=== PATIENT | male | born 1975 ===

== ENCOUNTER 2017-03-31 18:42 | Emergency (ER) | payer MEDICAID, OTHER ==
[2017-03-31 19:12] VITALS: TEMP 98.1
--- NOTE | 2017-03-31 19:18 | ED PDOC ---
Arrival/HPI - General Chief Complaint: Chest Pain Time Seen by Provider: 03/31/17 18:44 Historian: Patient - History of Present Illness Narrative History of Present Illness (Text): 03/31/17 19:20 A 41 year old male, who denies any past medical history, presents to the emergency department complaining of intermittent left sided chest pain for the past 1-2 weeks. Patient describes pain as a constant pressure, sometimes a sharp pain. Pain not worse with movement or exertion. Patient reports he gets a sharp pain with deep breaths. Takes Advil for pain. Patient notes chronic LUQ abdominal pain, but denies any cough, shortness of breath, nausea, vomiting or any other complaints at this time. Denies any drug use. Patient admits to being stressed. Time/Duration: Other (1-2 weeks) Symptom Onset: Sudden Symptom Course: Unchanged Activities at Onset: Rest Context: Home Past Medical History - Provider Review Nursing Documentation Reviewed: Yes - Infectious Disease Hx of Infectious Diseases: None - Psychiatric Hx Substance Use: No - Surgical History Hx Appendectomy: Yes Family/Social History - Physician Review Nursing Documentation Reviewed: Yes Family/Social History: No Known Family HX Smoking Status: Never Smoked Hx Alcohol Use: Yes Frequency of alcohol use: Socially Hx Substance Use: No Allergies/Home Meds Allergies/Adverse Reactions: Allergies No Known Allergies Allergy (Verified 03/31/17 18:52) Review of Systems - Physician Review All systems were reviewed & negative as marked: Yes - Review of Systems Respiratory: absent: SOB, Cough Cardiovascular: Chest Pain (L sided) Gastrointestinal: Abdominal Pain (chronic LUQ). absent: Nausea, Vomiting Physical Exam Vital Signs Reviewed: Yes Vital Signs Temp Pulse Resp BP Pulse Ox 03/31/17 19:04 98.1 F 03/31/17 18:56 89 16 130/72 97 Blood Pressure: Normal Pulse: Regular Respiratory Rate: Normal Appearance: Positive for: Well-Appearing, Non-Toxic, Comfortable Pain Distress: None Mental Status: Positive for: Alert and Oriented X 3 - Systems Exam Head: Present: Atraumatic, Normocephalic Extroacular Muscles: Present: EOMI Conjunctiva: Present: Normal Mouth: Present: Moist Mucous Membranes Pharnyx: Present: Normal. No: ERYTHEMA, EXUDATE Neck: Present: Normal Range of Motion Respiratory/Chest: Present: Clear to Auscultation, Good Air Exchange. No: Respiratory Distress, Accessory Muscle Use Cardiovascular: Present: Regular Rate and Rhythm, Normal S1, S2. No: Murmurs Abdomen: Present: Normal Bowel Sounds. No: Tenderness, Distention, Peritoneal Signs Back: Present: Normal Inspection Upper Extremity: Present: Normal Inspection. No: Cyanosis, Edema Lower Extremity: Present: Normal Inspection. No: Edema Neurological: Present: GCS=15, CN II-XII Intact, Speech Normal Skin: Present: Warm, Dry, Normal Color. No: Rashes Psychiatric: Present: Alert, Oriented x 3, Normal Insight, Normal Concentration Medical Decision Making ED Course and Treatment: 03/31/17 19:13 Impression: A 41 year old male with left sided chest pain. Differential Diagnosis included but are not limited to: anxiety vs. musculoskeletal vs. pneumonia vs. pulmonary embolism vs. acute coronary syndrome Plan: -- chest xray -- labs -- Urinalysis -- Xanax -- Reassess and disposition Prior Visits: Notes and results from previous visits were reviewed. Patient was last seen in the Emergency department on 07/15/16 for evaluation of worsening left testicular pain. Progress Notes: EKG: NSR @ 92; no ST/T changes; normal intervals, normal axis CXR: nad as read by me. 03/31/17 20:36 Patient with noted history of intermittent but increasing chest pressure, not associated with exertion with no sob x 2 weeks. CXR and EKG are normal as are labs, including CE and negative d-dimer. Patient is a 41 y.o male but no other cardiac risk factors. He admits to being stressed and was given a low dose of xanax and reports feeling much better with it. Findings reveal no current evidence of a cardiopulmonary etiology and he will need to follow up outpatient in the medical clinic for re-evaluation. Will give script for 4 xanax tablets for anxiety to use PRN and instructed to follow up in the medical clinic. - Lab Interpretations Lab Results: 03/31/17 19:25 03/31/17 19:25 Lab Results 03/31/17 19:30: Urine Color Yellow, Urine Appearance Clear, Urine pH 7.5, Ur Specific [place] 1.020, Urine Protein Negative, Urine Glucose (UA) Negative, Urine Ketones Negative, Urine Blood Negative, Urine Nitrate Negative, Urine Bilirubin Negative, Urine Urobilinogen 1.0 H, Ur Leukocyte Esterase Negative 03/31/17 19:25: Sodium 138, Potassium 4.4, Chloride 103, Carbon Dioxide 28, Anion Gap 11, BUN 13, Creatinine 1.2, Est GFR ( Amer) > 60, Est GFR (Non- Af Amer) > 60, Random Glucose 80, Calcium 9.1, Magnesium 1.9, Total Bilirubin 0.3, AST 29, ALT 46, Alkaline Phosphatase 60, Lactate Dehydrogenase 319 L, Total Creatine Kinase 73, Troponin I < 0.01, NT-Pro-B Natriuret Pep < 11.1, Total Protein 7.1, Albumin 4.1, Globulin 2.9, Albumin/Globulin Ratio 1.4 03/31/17 19:25: PT 10.5, INR 0.97, APTT 24.6, D-Dimer, Quantitative 0.19 03/31/17 19:25: WBC 7.3, RBC 4.94, Hgb 15.2, Hct 43.7, MCV 88.5, MCH 30.8, MCHC 34.8, RDW 12.2, Plt Count 216, MPV 11.3 H, Gran % 56.5, Lymph % (Auto) 34.0, Bowman % (Auto) 7.8 H, Eos % (Auto) 1.4 L, Baso % (Auto) 0.3, Gran # 4.13, Lymph # 2.5, Bowman # 0.6, Eos # 0.1, Baso # 0.02 I have reviewed the lab results: Yes - RAD Interpretation Radiology Orders: 03/31/17 19:04 CHEST PORTABLE [RAD] Stat - Medication Orders Current Medication Orders: Discontinued Medications Alprazolam (Xanax) 0.125 mg PO STAT STA PRN Reason: Protocol Stop: 03/31/17 19:06 Last Admin: 03/31/17 19:35 Dose: 0.125 mg - Scribe Statement The provider has reviewed the documentation as recorded by the Mau Henry Provider Scribe Attestation: All medical record entries made by the Scribe were at my direction and personally dictated by me. I have reviewed the chart and agree that the record accurately reflects my personal performance of the history, physical exam, medical decision making, and the department course for this patient. I have also personally directed, reviewed, and agree with the discharge instructions and disposition. Disposition/Present on Arrival - Present on Arrival Any Indicators Present on Arrival: No History of DVT/PE: No History of Uncontrolled Diabetes: No Urinary Catheter: No History of Decub. Ulcer: No History Surgical Site Infection Following: None - Disposition Have Diagnosis and Disposition been Completed?: Yes Diagnosis: Atypical chest pain Disposition: HOME/ ROUTINE Disposition Time: 20:35 Patient Plan: Discharge Condition: GOOD Discharge Instructions (ExitCare): Chest Pain (ED), Anxiety (ED) Print Language: BURMESE Additional Instructions: Decrease stress. You may use the xanax as instructed and make sure you follow up in the medical clinic. Return to the emergency department if any new concerning symptoms. Prescriptions: ALPRAZolam [Xanax] 1 tab PO Q8H PRN #4 tab PRN Reason: Anxiety Ref[place]: [facility] [place] [facility] [place] - Follow up with primary
[2017-03-31 19:34] LABS: ADD MANUAL DIFF? NO
[2017-03-31 19:42] LABS: BASO # 0.02 K/mm3 (0.0-2.0); BASO % 0.3 % (0.0-3.0); EOS # 0.1 (0.0-0.7); EOS % 1.4 % (1.5-5.0); GRAN # 4.13 (1.4-6.5); GRAN % 56.5 % (50.0-68.0); HEMATOCRIT 43.7 % (42.0-52.0); LYMPH # 2.5 (1.2-3.4); MEAN CELL VOLUME 88.5 fL (80.0-105.0); MEAN CORPUSCULAR HEMOGLOBIN 30.8 pg (25.0-35.0); MEAN CORPUSCULAR HGB CONC 34.8 g/dl (31.0-37.0); MEAN PLATELET VOLUME 11.3 fl (7.0-11.0); MONO # 0.6 (0.1-0.6); MONO % 7.8 % (1.0-6.0); PLATELET COUNT 216 10^3/uL (120.0-450.0); RED CELL DISTRIBUTION WIDTH 12.2 % (11.5-14.5); WHITE BLOOD COUNT 7.3 10^3/ul (4.5-11.0)
[2017-03-31 19:51] LABS: PH,URINE 7.5 (4.7-8.0); URINE BILIRUBIN NEGATIVE (NEGATIVE); URINE BLOOD NEGATIVE (NEGATIVE); URINE GLUCOSE (UA) NEGATIVE (NEGATIVE); URINE KETONE NEGATIVE (NEGATIVE); URINE LEUKOCYTE ESTERASE NEGATIVE Leu/uL (NEGATIVE); URINE PROTEIN NEGATIVE mg/dL (<30 mg/dL)
[2017-03-31 19:51] LABS: ALB/GLOB RATIO 1.4 (1.1-1.8); ALKALINE PHOSPHATASE 60 U/L (38-133); ALT/SGPT 46 U/L (7-56); AST/SGOT 29 U/L (15-59); BILIRUBIN,TOTAL 0.3 mg/dL (0.2-1.3); BLOOD UREA NITROGEN 13 mg/dL (7-21); CALCIUM 9.1 mg/dL (8.4-10.5); CARBON DIOXIDE 28 mmol/L (21-33); CHLORIDE 103 mmol/L (98-107); GFR AFRICAN-AMERICAN > 60; GLUCOSE,RANDOM 80 mg/dL (70-110); MAGNESIUM 1.9 mg/dL (1.7-2.2); POTASSIUM 4.4 mmol/L (3.6-5.0); SODIUM 138 mmol/L (132-148); TOTAL PROTEIN 7.1 g/dL (5.8-8.3)
[2017-03-31 19:52] LABS: INR 0.97 (0.93-1.08); PARTIAL THROMBOPLASTIN TIME 24.6 Seconds (23.7-30.8)
[2017-03-31 19:54] LABS: D DIMER 0.19 mg/L FEU (0-0.50)
[2017-03-31 19:54] LABS: URINE APPEARANCE CLEAR (CLEAR); URINE COLOR YELLOW (YELLOW)
[2017-03-31 20:04] LABS: TROPONIN I < 0.01 ng/mL
[2017-03-31 21:02] VITALS: BP 118/62; PULSE 88; RESP 17; O2SAT 98
--- NOTE | 2017-04-01 10:16 | RAD ---
HISTORY: Left-sided chest pain COMPARISON: No prior. FINDINGS: LUNGS: The lungs are clear. PLEURA: No significant pleural effusion identified, no pneumothorax apparent. CARDIOVASCULAR: Normal. OSSEOUS STRUCTURES: No significant abnormalities. VISUALIZED UPPER ABDOMEN: Normal. OTHER FINDINGS: None. IMPRESSION: No acute findings.
--- NOTE | 2017-04-01 23:58 | CARD ---
APPROVED REPORT EKG Measurement Heart [id number] <Conclusion> Normal sinus rhythm Normal ECG
== END 2017-03-31 21:01 | disposition home or self-care (01) ==
LOC: ED 18:42
DX: R07.89 Other chest pain (principal)

== ENCOUNTER 2017-06-12 13:26 | Emergency (ER) | payer MEDICAID, OTHER ==
[2017-06-12 15:03] LABS: URINE APPEARANCE CLEAR (CLEAR); URINE BILIRUBIN NEGATIVE (NEGATIVE); URINE BLOOD NEGATIVE (NEGATIVE); URINE COLOR YELLOW (YELLOW); URINE GLUCOSE (UA) 100 mg/dL (NEGATIVE); URINE KETONE NEGATIVE (NEGATIVE); URINE LEUKOCYTE ESTERASE NEGATIVE Leu/uL (NEGATIVE); URINE PROTEIN NEGATIVE mg/dL (<30 mg/dL); URINE UROBILINOGEN 0.2 E.U./dL (<1 E.U./dL)
--- NOTE | 2017-06-12 15:16 | RAD ---
HISTORY: pes eval COMPARISON: Chest x-ray performed 03/31/17 TECHNIQUE: Chest, one view. FINDINGS: Examination limited by habitus and hypoinflation. LUNGS: No focal consolidation. Please note that chest x-ray has limited sensitivity for the detection of pulmonary masses. PLEURA: No significant pleural effusion identified. No definite pneumothorax . CARDIOVASCULAR: Heart size appears within normal limits. OSSEOUS STRUCTURES: No acute osseous abnormality identified. VISUALIZED UPPER ABDOMEN: Unremarkable. OTHER FINDINGS: None. IMPRESSION: No focal consolidation, significant pleural effusion, or definite pneumothorax identified.
[2017-06-12 15:31] LABS: BASO # 0.02 K/mm3 (0.0-2.0); BASO % 0.3 % (0.0-3.0); EOS # 0.1 (0.0-0.7); EOS % 1.6 % (1.5-5.0); GRAN # 4.22 (1.4-6.5); HEMATOCRIT 47.6 % (42.0-52.0); LYMPH # 2.7 (1.2-3.4); LYMPH % 35.7 % (22.0-35.0); MEAN CELL VOLUME 89.6 fl (80.0-105.0); MEAN CORPUSCULAR HEMOGLOBIN 30.7 pg (25.0-35.0); MEAN CORPUSCULAR HGB CONC 34.2 g/dl (31.0-37.0); MEAN PLATELET VOLUME 11.3 fl (7.0-11.0); MONO # 0.5 (0.1-0.6); MONO % 6.4 % (1.0-6.0); RED CELL DISTRIBUTION WIDTH 12.7 % (11.5-14.5); WHITE BLOOD COUNT 7.5 10^3/ul (4.5-11.0)
[2017-06-12 15:42] LABS: ALB/GLOB RATIO 1.6 (1.1-1.8); ALKALINE PHOSPHATASE 65 U/L (38-126); ALT/SGPT 49 U/L (7-56); AST/SGOT 28 U/L (17-59); BILIRUBIN,TOTAL 0.5 mg/dL (0.2-1.3); BLOOD UREA NITROGEN 17 mg/dL (7-21); CALCIUM 10.1 mg/dL (8.4-10.5); CARBON DIOXIDE 29 mmol/L (21-33); CHLORIDE 102 mmol/L (98-107); GFR AFRICAN-AMERICAN > 60; GLUCOSE,RANDOM 75 mg/dL (70-110); POTASSIUM 4.6 mmol/L (3.6-5.0); SODIUM 141 mmol/L (132-148); TOTAL PROTEIN 7.3 g/dL (5.8-8.3)
--- NOTE | 2017-06-12 17:37 | ED PDOC ---
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 pt states he sustained abrasion to left forehead from scratching so much from anxiety. pt states anxiety and depression has worsened since the break up with his girlfriend. pt denies SI or HI. denies cp or sob. no fever/chills. no abdominal pain. no other complaints. Past Medical History - Provider Review Nursing Documentation Reviewed: Yes - Travel History Have you recently traveled outside [place] w/in the past 3 mons?: No - Infectious Disease Hx of Infectious Diseases: None - Tetanus Immunization Tetanus Immunization: Unknown - Psychiatric Hx Anxiety: Yes Hx Substance Use: No - Surgical History Hx Appendectomy: Yes - Anesthesia Hx Anesthesia: Yes Hx Anesthesia Reactions: No Hx Malignant Hyperthermia: No Family/Social History - Physician Review Nursing Documentation Reviewed: Yes Family/Social History: Unknown Family HX Smoking Status: Never Smoked Hx Alcohol Use: Yes Hx Substance Use: No Allergies/Home Meds Allergies/Adverse Reactions: Allergies No Known Allergies Allergy (Verified 06/12/17 13:51) Review of Systems - Review of Systems Constitutional: absent: Fatigue, Fevers Respiratory: absent: SOB, Cough Cardiovascular: absent: Chest Pain, Palpitations Gastrointestinal: absent: Abdominal Pain, Diarrhea, Nausea, Vomiting Genitourinary Male: absent: Dysuria, Frequency Musculoskeletal: absent: Arthralgias, Back Pain, Neck Pain Skin: Rash. absent: Pruritis Neurological: absent: Headache, Dizziness Psychiatric: Anxiety, Depression. absent: Suicidal Ideation Physical Exam Vital Signs Reviewed: Yes Vital Signs Temp Pulse Resp BP Pulse Ox 06/12/17 17:58 98.1 F 85 19 123/71 97 06/12/17 17:00 72 18 109/53 L 99 06/12/17 15:29 98.0 F 76 17 134/70 98 06/12/17 13:46 98.4 F 75 19 123/91 H 99 Temperature: Afebrile Blood Pressure: Normal Pulse: Regular Respiratory Rate: Normal Appearance: Positive for: Well-Appearing, Non-Toxic, Comfortable Pain Distress: None Mental Status: Positive for: Alert and Oriented X 3 - Systems Exam Head: Present: Atraumatic, Other (abrasion noted to left forehead; no erythema; no edema, no tenderness. no step offs or crepitus. ) Mouth: Present: Moist Mucous Membranes Neck: Present: Normal Range of Motion Respiratory/Chest: Present: Clear to Auscultation, Good Air Exchange. No: Respiratory Distress, Accessory Muscle Use Cardiovascular: Present: Regular Rate and Rhythm, Normal S1, S2. No: Murmurs Abdomen: Present: Normal Bowel Sounds. No: Tenderness, Distention, Peritoneal Signs Upper Extremity: Present: Normal ROM Neurological: Present: GCS=15, Gait Normal Skin: Present: Warm, Dry, Normal Color. No: Rashes Psychiatric: Present: Alert, Oriented x 3 Medical Decision Making ED Course and Treatment: 06/12/17 17:20 Patient is nontoxic well-appearing in no distress vital signs are stable. CBC WNL CMP WNL Tylenol WNL Salicylate WNL Alcohol level WNL Urine drug screen wnl UA; wnl cxr: wnl ekg NSR at 64b/m no st elevations, normal axis, normal intervals. pt is medically cleared for PES evaluation Patient was seen and evaluated by PES screener: akosua pt given 0.25mg xanax in er. Patient cleared psychiatrically for discharge pt was advised to f/u with mental health center. advised immediate return if symptoms worsen,persist or if new symptoms develop. all information was translated to the patient using central office maintainer fruit loader machine operator #[phone] Impression; anxiety, depression Followup with behavioral health return if symptoms worsen,persist or if new symptoms develop. xanax 1 tablet every 8 hours as needed for anxiety; may cause drowsiness. - Lab Interpretations Lab Results: 06/12/17 13:10 06/12/17 13:10 Lab Results 06/12/17 14:50: Urine Opiates Screen Negative, Urine Methadone Screen Negative, Ur Barbiturates Screen Negative, Ur Phencyclidine Scrn Negative, Ur Amphetamines Screen Negative, U Benzodiazepines Scrn Negative, U Oth Cocaine Metabols Negative, U Cannabinoids Screen Negative 06/12/17 14:50: Urine Color Yellow, Urine Appearance Clear, Urine pH 6.0, Ur Specific [place] 1.025, Urine Protein Negative, Urine Glucose (UA) 100 H, Urine Ketones Negative, Urine Blood Negative, Urine Nitrate Negative, Urine Bilirubin Negative, Urine Urobilinogen 0.2, Ur Leukocyte Esterase Negative 06/12/17 13:10: Salicylates < 1 L, Acetaminophen < 10.0 L 06/12/17 13:10: WBC 7.5, RBC 5.31, Hgb 16.3, Hct 47.6, MCV 89.6, MCH 30.7, MCHC 34.2, RDW 12.7, Plt Count 229, MPV 11.3 H, Gran % 56.0, Lymph % (Auto) 35.7 H, [place] % (Auto) 6.4 H, Eos % (Auto) 1.6, Baso % (Auto) 0.3, Gran # 4.22, Lymph # 2.7, [place] # 0.5, Eos # 0.1, Baso # 0.02 06/12/17 13:10: Alcohol, Quantitative < 10 06/12/17 13:10: Sodium 141, Potassium 4.6, Chloride 102, Carbon Dioxide 29, Anion Gap 15, BUN 17, Creatinine 0.9, Est GFR ( Amer) > 60, Est GFR (Non- Af Amer) > 60, Random Glucose 75, Calcium 10.1, Total Bilirubin 0.5, AST 28, ALT 49, Alkaline Phosphatase 65, Total Protein 7.3, Albumin 4.5, Globulin 2.8, Albumin/Globulin Ratio 1.6 - RAD Interpretation Radiology Orders: 06/12/17 14:39 CHEST PORTABLE [RAD] Stat - Medication Orders Current Medication Orders: Alprazolam (Xanax) 0.25 mg PO STAT STA PRN Reason: Protocol Stop: 06/12/17 18:28 Disposition/Present on Arrival - Present on Arrival Any Indicators Present on Arrival: No History of DVT/PE: No History of Uncontrolled Diabetes: No Urinary Catheter: No History of Decub. Ulcer: No History Surgical Site Infection Following: None - Disposition Have Diagnosis and Disposition been Completed?: Yes Diagnosis: Depression, Anxiety Disposition: HOME/ ROUTINE Disposition Time: 17:44 Patient Plan: Discharge Condition: GOOD Additional Instructions: Followup with behavioral health return if symptoms worsen,persist or if new symptoms develop. Prescriptions: ALPRAZolam [Xanax] 1 tab PO Q8H PRN #4 tab PRN Reason: Anxiety Referrals: [facility] [place] - Follow up with primary [facility] [Outside] - Follow up with primary Forms: [employer] (Persian), WORK NOTE
[2017-06-12 18:00] VITALS: BP 123/71; PULSE 85; RESP 19; TEMP 98.1; O2SAT 97
--- NOTE | 2017-06-14 07:25 | CARD ---
APPROVED REPORT EKG Measurement Heart [id number] [id number] <Conclusion> Normal sinus rhythm Normal ECG
== END 2017-06-12 18:41 | disposition home or self-care (01) ==
LOC: ED 13:26
DX: F32.9 Major depressive disorder, single episode, unspecified (principal); F41.9 Anxiety disorder, unspecified
CPT/HCPCS: 71010; 80053; 81003; 85025; 93005; 99284; G0480

== ENCOUNTER 2018-12-09 22:12 | Emergency (ER) | payer SELFPAY ==
[2018-12-09 22:44] VITALS: BMI 35.5
--- NOTE | 2018-12-09 22:58 | ED PDOC ---
Arrival/HPI <Abad Dawson - Last Filed: 12/10/18 00:21> - History of Present Illness Narrative History of Present Illness (Text): Dilip Shell is a 43 year old male who presents to the Emergency department complaining of throat discomfort and difficulty swallowing for 4 years. Patient states he was seen in the past by a physician in the [facility], who did a basic exam and was treated with medication but never got better. Patient states symptoms are worse at night, especially when he was trying to sleep x 1 month. Patient states it feels like he's choking and can not breathe. Patient denies any fever, chills, URI symptoms, headache, rash, CP, back pain, SOB, or any other complaints. Symptom Onset: Gradual Symptom Course: Unchanged Activities at Onset: Light Context: Home <Unique Russell PA-C - Last Filed: 12/10/18 01:35> - General Chief Complaint: ENT Problem Time Seen by Provider: 12/09/18 22:27 Past Medical History - Provider Review Nursing Documentation Reviewed: Yes - Infectious Disease Hx of Infectious Diseases: None - Tetanus Immunization Tetanus Immunization: Unknown - Cardiac Hx Cardiac Disorders: No - Pulmonary Hx Respiratory Disorders: No - Neurological Hx Neurological Disorder: No - HEENT Hx HEENT Disorder: No - Renal Hx Renal Disorder: No - Endocrine/Metabolic Hx Endocrine Disorders: No - Hematological/Oncological Hx Blood Disorders: No - Integumentary Hx Dermatological Disorder: No - Musculoskeletal/Rheumatological Hx Musculoskeletal Disorders: No - Gastrointestinal Hx Gastrointestinal Disorders: No - Genitourinary/Gynecological Hx Genitourinary Disorders: No - Psychiatric Hx Psychophysiologic Disorder: Yes Hx Anxiety: Yes Hx Substance Use: No - Surgical History Hx Appendectomy: Yes Hx Tonsillectomy: Yes Other/Comment: Varicose vein removal - Anesthesia Hx Anesthesia: Yes Hx Anesthesia Reactions: No Hx Malignant Hyperthermia: No <Unique Russell PA-C - Last Filed: 12/10/18 01:35> Family/Social History - Physician Review Nursing Documentation Reviewed: Yes Family/Social History: Unknown Family HX Smoking Status: Never Smoked Hx Alcohol Use: Yes Frequency of alcohol use: Socially Hx Substance Use: No <Unique Russell PA-C - Last Filed: 12/10/18 01:35> Allergies/Home Meds <Samir,Abad - Last Filed: 12/10/18 00:21> <Unique Russell PA-C - Last Filed: 12/10/18 01:35> Allergies/Adverse Reactions: Allergies No Known Allergies Allergy (Verified 06/12/17 13:51) Review of Systems - Physician Review All systems were reviewed & negative as marked: Yes - Review of Systems Constitutional: Normal. absent: Fevers Eyes: Normal ENT: Sore Throat Respiratory: Normal. absent: SOB, Cough Cardiovascular: Normal. absent: Chest Pain Gastrointestinal: Normal. absent: Abdominal Pain, Diarrhea, Nausea, Vomiting Genitourinary Male: Normal. absent: Dysuria, Frequency, Hematuria, Urinary Output Changes Musculoskeletal: Normal. absent: Back Pain, Neck Pain Skin: Normal. absent: Rash Neurological: Normal. absent: Headache, Dizziness Endocrine: Normal Hemo/Lymphatic: Normal Psychiatric: Normal <Unique Russell PA-C - Last Filed: 12/10/18 01:35> Physical Exam Vital Signs Reviewed: Yes Temperature: Afebrile Blood Pressure: Normal Pulse: Regular Respiratory Rate: Normal Appearance: Positive for: Well-Appearing, Non-Toxic, Comfortable, Other (Speaking full sentences, no drooling) Pain Distress: None Mental Status: Positive for: Alert and Oriented X 3 - Systems Exam Head: Present: Atraumatic, Normocephalic Pupils: Present: PERRL Extroacular Muscles: Present: EOMI Conjunctiva: Present: Normal Ears: Present: Normal, NORMAL TM, Normal Canal. No: Erythema, TM Bulging, Fluid, TM Perf Mouth: Present: Moist Mucous Membranes. No: Drooling Pharnyx: Present: Normal. No: ERYTHEMA, EXUDATE, TONSILS ENLARGED, Peritonsilar Swelling, Uvular Deviation, Muffled/Hoarse Voice, Soft Palate/Uvular Edema Nose (External): Present: Atraumatic Nose (Internal): Present: Normal Inspection Neck: Present: Normal Range of Motion. No: Meningeal Signs, MIDLINE TENDERNESS, Paraspinal Tenderness, Lymphadenopathy Respiratory/Chest: Present: Clear to Auscultation, Good Air Exchange. No: Respiratory Distress, Accessory Muscle Use Cardiovascular: Present: Regular Rate and Rhythm, Normal S1, S2. No: Murmurs Upper Extremity: Present: Normal Inspection. No: Cyanosis, Edema Lower Extremity: Present: Normal Inspection. No: Edema Neurological: Present: GCS=15, CN II-XII Intact, Speech Normal Skin: Present: Warm, Dry, Normal Color. No: Rashes Psychiatric: Present: Alert, Oriented x 3, Normal Insight, Normal Concentration <Unique Russell PA-C - Last Filed: 12/10/18 01:35> Medical Decision Making ED Course and Treatment: Impression: 43 year old male complaining of throat discomfort and difficulty swallowing for 4 years. Plan: -- CT Neck Soft Tissue -- Labs -- Reassess and disposition Progress Notes: Patient is refusing labs and CT of the neck. Patient asked to reconsider, however still is refusing. States that he would rather go back to [place] and have a medical evaluation there. The patient is choosing to leave against medical advice. I have personally explained to the patient that choosing to do so may result in permanent bodily harm or . I have discussed at great length that without further evaluation and monitoring there may be unforeseen circumstances and/or deterioration causing permanent bodily harm or as a result of their choice. The patient is alert, oriented, and shows the mental capacity to make clear decisions regarding the patients health care at this time. The patient continues to wish to leave against medical advice. In light of the patients decision to leave against medical advice, he was encouraged to follow-up with ENT, and the patient is aware of the importance to following up as instructed. The patient has been advised that they should return to the emergency room immediately if they change their mind at any time, or if their condition begins to change or worsen in any way. - RAD Interpretation Radiology Orders: 12/09/18 22:48 NECK SOFT TISSUE W/CONTRAST [CT] Stat <Unique Russell PA-C - Last Filed: 12/10/18 01:35> - PA / RACK MAKER / Resident Statement MD/DO has reviewed & agrees with the documentation as recorded. <Abad Dawson - Last Filed: 12/10/18 00:21> - Scribe Statement The provider has reviewed the documentation as recorded by the Joseibdarinel Hankins Provider Scribe Attestation: All medical record entries made by the Scribe were at my direction and personally dictated by me. I have reviewed the chart and agree that the record accurately reflects my personal performance of the history, physical exam, medical decision making, and the department course for this patient. I have also personally directed, reviewed, and agree with the discharge instructions and disposition. <Unique Russell PA-C - Last Filed: 12/10/18 01:35> Disposition/Present on Arrival <Abad Dawson - Last Filed: 12/10/18 00:21> - Present on Arrival Any Indicators Present on Arrival: No History of DVT/PE: No History of Uncontrolled Diabetes: No Urinary Catheter: No History of Decub. Ulcer: No History Surgical Site Infection Following: None - Disposition Have Diagnosis and Disposition been Completed?: Yes Disposition Time: 22:50 Patient Plan: Other (Patient wishes to leave AMA) <Unique Russell PA-C - Last Filed: 12/10/18 01:35> - Disposition Diagnosis: Throat pain Disposition: AGAINST MEDICAL ADVICE Condition: UNKNOWN Forms: [facility] (Belarusian)
== END 2018-12-09 23:07 | disposition left against medical advice (07) ==
LOC: ED 22:12
DX: R07.0 Pain in throat (principal)